=== PATIENT | female | born 1995 | race Caucasian/White ===

== ENCOUNTER 2022-05-19 17:00 | Inpatient (IN) | payer OTHER, MEDICAID, SELFPAY ==
[2022-05-19] VITALS (52 sets, daily range): BP systolic 109–175; BP diastolic 55–95; PULSE 79–103; RESP 18; TEMP 37.1; O2SAT 97–100; BMI 40.7
[2022-05-19 13:32] LABS: Nitrazine Paper, PH Negative
[2022-05-19 14:09] LABS: Actim Prom Positive
[2022-05-19 15:18] LABS: Basophils % 0.1 %; Eosinophils # 0.1 10^3/uL (0.0-0.8); Eosinophils % 0.7 %; Hemoglobin 13.3 g/dL (11.5-15.3); Lymphocytes # 2.4 10^3/uL (0.8-4.8); Lymphocytes % 15.6 %; Mean Corpuscular HGB Conc 34.1 g/dL (30.0-36.0); Mean Corpuscular Hemoglobin 31.4 pg (28.0-34.0); Monocytes # 0.8 10^3/uL (0.2-0.9); Monocytes % 5.1 %; Neutrophils # 11.99 10^3/uL (1.8-7.7); Neutrophils % 77.8 %; Nucleated Red Blood Cells % 0 %; Platelet Count 262 10^3/cmm (130-400); Red Blood Count 4.24 10^6/uL (4.1-5.3); Red Cell Distribution Width 14.2 % (12.1-15.1); White Blood Count 15.4 10^3/uL (4.0-10.0)
[2022-05-19] MEDS: dextrose 5%-lactated ringers 1,000 ML 125 ML IV (15:22)
[2022-05-19] MEDS: ampicillin 2,000 MG in sodium chloride 0.9% (plus) 50 ML 100 MG IV (15:23)
[2022-05-19] MEDS: miSOPROStol 100 mcg tablet 25 MCG SUBLINGUAL (17:31)
--- NOTE | 2022-05-19 18:20 | ANES.PREANE2 ---
Pre-Anesthetic Assessment Height/Weight: Height 1.75 m Weight 125.191 kg Temp Pulse Resp BP O2 Del Method 98.7 F 92 18 127/79 05/19/22 14:47 05/19/22 16:04 05/19/22 14:47 05/19/22 16:04 05/19/22 15:00 Preop Diagnosis: Active Labor Labor Epidural Familial anesthetic complications: none Last intake: clears- current meal- 1230 05/19/22 Social No alcohol and No tobacco Airway Submandibular: within normal limits Cervical ROM: within normal limits Mallampati: Class II Dentition: full Pulmonary None reported CV/HEM None reported None reported Hepatic None reported GI Gastroesophageal Reflux Disease Metabolic None reported Musc/skel None reported Neuropsych None reported Anesthetic Plan ASA status: 2 Anesthesia: Eval. for regional block (Epidural) Medications/Allergies Home Medications Medication Instructions Recorded Confirmed Last Taken Type fluoxetine 40 mg capsule 40 mg PO DAILY 05/18/21 05/19/22 05/18/22 17:00 History 05/19/22 05/18/22 17:00 History Allergies Allergy/AdvReac Type Severity Reaction Status Date / Time No Known Allergies Allergy Verified 05/18/21 10:38 Current Medications Generic Name Dose Route Start Last Admin Trade Name Freq PRN Reason Stop Dose Admin Dextrose/Lactated Ringer's 1,000 mls @ 125 mls/hr 05/19/22 15:00 05/19/22 15:22 Dextrose 5%-Lactated Ringers IV 125 mls/hr .Q8H JOSE Administration Misoprostol 25 mcg 05/19/22 17:22 05/19/22 17:31 Misoprostol 100 Mcg Tablet SUBLINGUAL 25 mcg ONCE PRN Administration LABOR INDUCTION PFS Anesthesia Social History (Updated 05/18/21 @ 10:39 by Jessie Haynes NP) Smoking and tobacco status: never smoked Female Reproductive History : 1 Data Anesthesia 05/19/22 15:00 Short CBC 05/19/22 Range/Units 15:00 WBC 15.4 H (4.0-10.0) 10^3/uL Hgb 13.3 (11.5-15.3) g/dL Hct 39.0 (37.0-47.0) % MCV 92.0 (81-99) fl Plt Count 262 (130-400) 10^3/cmm Neut % (Auto) 77.8 % Neut # (Auto) 11.99 H (1.8-7.7) 10^3/uL Cardiac Studies: No Data to Display
--- NOTE | 2022-05-19 18:41 | PC.NURSE ---
PT SEE JONH ODOM, HAS NOT SEEN HER IN ABOUT 2 MONTHS, DR. ZUNIGA IS TREATING HER WITH LEXAPRSloane AND IS AWARE OF HER ISSUES. THIS MAT MACHINE TENDER DID TALK WITH HER ABOUT POST DEPRESSION.
[2022-05-19] MEDS: ampicillin 1,000 MG in sodium chloride 0.9% (plus) 50 ML 100 MG IV ×2 (19:37→23:37)
[2022-05-19] MEDS: oxytocin 30 UNIT/500 ML BAG IV (20:50)
[2022-05-19] MEDS: lactated ringers 1,000 ML 999 ML IV ×2 (21:07→22:20)
--- NOTE | 2022-05-19 22:53 | ANES.PROC ---
Documented by User: Tricia Alonzo CRNA 05/19/22 22:57 Anesthesia Procedures Procedure/Date: 05/19/22 Epidural: Time Out Performed: Yes Consents Signed: Procedure Consent Consent: requested by attending/covering physician, from patient, risks and benefits reviewed and patient agrees to proceed Lumbar Level: L3-L4 Epidural position: sitting Epidural procedure: sterile prep of area, 1% lidocaine to numb the area, negative for paresthesia passed, test dose given, 1.5% xylocaine 1:200k epi, placed PCEA, no systemic response, sterile dressing applied, L.U.D. no apparent complications and 0.2% Ropiavacaine @ mls/hr (13) Additional Comments: third attempt successful CHRISTEN at 9cm catheter threaded with ease to 15 cm 100 mcg fentanyl, 10 ml of sterile saline and remaining lidocaine given. sterile dressing applied SAM. VSS. Documented by User: Bert Dee 05/20/22 08:18 Anesthesia Procedures Procedure/Date: 05/20/22
[2022-05-19] MEDS: fentaNYL 50 mcg/mL INJ 2mL IVP (23:30)
[2022-05-20] VITALS (85 sets, daily range): BP systolic 79–215; BP diastolic 38–103; PULSE 16–123; RESP 16–89; TEMP 36.8; O2SAT 98–100
--- NOTE | 2022-05-20 00:20 | P.ANES_ITS ---
Documented by User: Tricia Alonzo CRNA 05/20/22 01:07 Anesthesia Procedures Procedure/Date: 05/20/22 Epidural: Time Out Performed: Yes Consents Signed: Procedure Consent Lumbar Level: L3-L4 Epidural position: sitting Epidural procedure: sterile prep of area, 1% lidocaine to numb the area, negative for paresthesia passed, test dose given, 1.5% xylocaine 1:200k epi, placed PCEA, no systemic response, sterile dressing applied, L.U.D. no apparent complications and 0.2% Ropiavacaine @ mls/hr (13 ml ) Additional Comments: previous epidural removed by DRIVER STARTING GATE tip intact- patient did not receive adequate relief after multiple bolus attempts. Successful insertion on second attempt CHRISTEN at 9 cm catheter threaded to 18 cm. Remaining saline and lidocaine given. Documented by User: Bert Dee 05/20/22 08:18 Anesthesia Procedures Procedure/Date: 05/20/22
--- NOTE | 2022-05-20 02:33 | PC.NURSE ---
Zach Onofre CRNA called Dr. Dee to come in. Time is unknown of call. Dr. Dee was in room at 0126
[2022-05-20] MEDS: ampicillin 1,000 MG in sodium chloride 0.9% (plus) 50 ML 100 MG IV (03:10)
[2022-05-20] MEDS: dextrose 5%-lactated ringers 1,000 ML 125 ML IV (04:30)
--- NOTE | 2022-05-20 04:55 | PM.OPHPUD ---
Labor & Delivery H&P Update Date of Procedure: May 20, 2022 Date H&P Performed: 05/17/22 Changes to previous documentation: Spontaneous rupture membranes Admission Diagnosis: 27-year-old 1 female at 41 weeks and 3 days Preop diagnosis: Active Labor Planned procedure: Vaginal delivery Other information: The patient presented to the hospital for an NST that was being performed due to being over 41 weeks. She stated that she was concerned her water may have broke. Nitrazine was negative. But actin PROM was positive. As result, she was admitted, and she was placed on Cytotec sublingual. Her had been relatively unremarkable. Her labs were as follows her blood type was O+. Her antibody screen was negative. Her initial glucose screen was 183, but she passed her 3-hour glucose screen she was GBS positive. Rubella immune. The remainder of her infectious disease profile was within normal limits. Related Problem List Diagnoses (1) 41 weeks gestation of : (2) Group B streptococcal carriage complicating : A&P Assessment and plan (1) 41 weeks gestation of : Depending on her response to Cytotec, we will continue to either augment her labor or monitor her progress. Status: Acute (2) Group B streptococcal carriage complicating : Group B strep protocol. Status: Acute
--- NOTE | 2022-05-20 05:02 | PM.DELIVERY ---
Delivery Note: Date of delivery: May 20, 2022 Pre-delivery diagnoses: 1. 27-year-old 1 at 41 weeks and 3 days presenting with spontaneous rupture of membranes 2. GBS status positive Post-delivery diagnoses: Status post vacuum-assisted vaginal delivery Procedure: Vacuum-assisted vaginal delivery Delivering Physician: J Carlos Sevilla Estimated blood loss (mL): 300 Pre-Delivery Course: The patient presented to the hospital in with spontaneous rupture of membranes. She was not sure exactly when it occurred but she thinks it happened late in the morning on the day of her admission. After monitoring the patient for several hours, we elected to place her on Cytotec sublingual. An amniotomy was performed as well at that time. As the patient's labor progressed, she desired an epidural. Unfortunately, there was multiple attempts to get her epidural before she finally had a good epidural on the fourth attempt. She then progressed to complete. She is allowed to labor down for about an hour before pushing was initiated. Delivery: DELIVERY: As the nursing staff was pushing with the patient, she began having some late decelerations but continued to have decent variability. The heart tones then dropped into the 70s. At that point they contacted me they came to the room. At that time the baby's heart tones briefly increased to the 120s before dropping to the 70s again. I elected to to assisted delivery with a vacuum. A Kiwi vacuum was placed and was pumped up to the appropriate range as her contraction began. I then assisted the infant for 1 push. The baby then went from +2 station to completely , and I released the vacuum. There were no pop offs. She delivered a female with a weight of 9 pounds 11 ounces with Apgars of 3 7 and 9. The baby was delivered from the SHAREE position and placed on the mother's abdomen it was clear that the baby's tone was not adequate, the cord was then clamped and cut and the baby was brought to the warmer There was no nuchal cord. Meconium was noted. The placenta and 3 vessel cord were delivered intact shortly thereafter. The perineum and vaginal vault were carefully examined. A posterior midline second-degree tear was noted. The patient also had a left vaginal wall laceration just deep to the labia minora. Both lacerations were repaired with 3-0 Vicryl. Both the mother and the baby were in stable condition. Post-Delivery Status: Good Coding Level of Care Code Acute Scientific Advisor for Perlitag Alber
--- NOTE | 2022-05-20 08:18 | ANE.PACU2 ---
Inpatient post-anesthesia follow up: Airway intact: Yes Vital signs: Temperature 98.7 F Pulse Rate 111 Respiratory Rate 16 Blood Pressure 111/54 Pulse Oximetry 98 Oxygen Delivery Me thod Room Air Oxygen Flow Rate Fraction of Inspir ed Oxygen Hydration adequate: Yes Nausea and vomiting: No Pain level: 2 Mental status: Baseline
[2022-05-20 09:07] LABS: Basophils % 0.1 %; Hematocrit 31.5 % (37.0-47.0); Hemoglobin 10.5 g/dL (11.5-15.3); Lymphocytes # 1.8 10^3/uL (0.8-4.8); Lymphocytes % 7.9 %; Mean Corpuscular HGB Conc 33.3 g/dL (30.0-36.0); Mean Corpuscular Hemoglobin 31.7 pg (28.0-34.0); Mean Corpuscular Volume 95.2 fl (81-99); Mean Platelet Volume 10.8 fL (7.4-10.4); Monocytes % 4.3 %; Neutrophils # 19.35 10^3/uL (1.8-7.7); Neutrophils % 86.7 %; Nucleated Red Blood Cells % 0 %; Platelet Count 253 10^3/cmm (130-400); Red Blood Count 3.31 10^6/uL (4.1-5.3); Red Cell Distribution Width 14.3 % (12.1-15.1); White Blood Count 22.3 10^3/uL (4.0-10.0)
[2022-05-20] MEDS: prenatal vitamin Capsule 1 CAP PO (11:49)
[2022-05-20] MEDS: docusate sodium 100 mg Capsule PO ×2 (11:49→17:35)
[2022-05-20] MEDS: ibuprofen 800 mg tablet PO ×3 (11:49→21:15)
[2022-05-20 20:27] LABS: Hemoglobin 10.2 g/dL (11.5-15.3); Mean Corpuscular Hemoglobin 31.9 pg (28.0-34.0); Mean Corpuscular Volume 93.8 fl (81-99); Mean Platelet Volume 10.2 fL (7.4-10.4); Platelet Count 233 10^3/cmm (130-400); Red Cell Distribution Width 14.5 % (12.1-15.1); White Blood Count 16.5 10^3/uL (4.0-10.0)
[2022-05-20] MEDS: benzocaine-menthol 78 gm Canister 1 SPRAY TOPICAL (21:16)
[2022-05-20] MEDS: lanolin oint 7 gm 1 APPLIC TOPICAL (21:16)
[2022-05-21 05:09] VITALS: BP 117/75; PULSE 92; RESP 16
[2022-05-21] MEDS: prenatal vitamin Capsule 1 CAP PO (07:57)
[2022-05-21] MEDS: ibuprofen 800 mg tablet PO (07:57)
[2022-05-21] MEDS: docusate sodium 100 mg Capsule PO (07:58)
--- NOTE | 2022-05-21 09:34 | PM.OBGYDC ---
Discharge Providers DIE CASTING SUPERVISOR Date of Admission: 05/19/22 17:00 Date of Discharge: 05/22/22 Attending Provider at Admission: J Carlos Sevilla MD Attending Provider at Discharge: J Carlos Sevilla MD Primary Care Provider: DAWNA Olivera Diagnoses at Discharge Discharge Diagnosis (1) 41 weeks gestation of : Status: Resolved (2) Group B streptococcal carriage complicating : Status: Resolved Reason for Visit Reason for Visit: PROM Hospital Course Hospital Course The patient presented to the hospital with spontaneous rupture of membranes. She was placed on Cytotec sublingual. An epidural was placed after multiple attempts. She then progressed to complete and had a vacuum-assisted vaginal delivery due to decelerations. Her course was otherwise unremarkable. She breast-fed well. Her pain was well controlled. Her bleeding was within normal limits. Information Peripartum Data: Delivery Method: Vaginal Physical Exam Narrative: The patient is alert. She appears comfortable. Her heart has a regular rate and rhythm with no murmurs appreciated. Lungs are clear to auscultation bilaterally. Her fundus is firm and below the umbilicus. Urinary Catheter Management: Bernard: Cath Placed During This Visit: yes, but has since been removed by the nurse Reason for Continuing Indwelling Catheter: Required Immobilization for Trauma or Surgery or Anesthesia Urinary Catheter Date of Insertion: 05/20/22 Urinary Catheter Time of Insertion: 00:40 Date Urinary Catheter Removed: 05/20/22 Time Urinary Catheter Discontinued: 03:55 Discharge Data Studies Completed and Pending Laboratory Results WBC 16.5 10^3/uL (4.0-10.0) H 05/20/22 20:17 RBC 3.20 10^6/uL (4.1-5.3) L 05/20/22 20:17 Hgb 10.2 g/dL (11.5-15.3) L 05/20/22 20:17 Hct 30.0 % (37.0-47.0) L 05/20/22 20:17 MCV 93.8 fl (81-99) 05/20/22 20:17 MCH 31.9 pg (28.0-34.0) 05/20/22 20:17 MCHC 34.0 g/dL (30.0-36.0) 05/20/22 20:17 RDW 14.5 % (12.1-15.1) 05/20/22 20:17 Plt Count 233 10^3/cmm (130-400) 05/20/22 20:17 MPV 10.2 fL (7.4-10.4) 05/20/22 20:17 Neut % (Auto) 86.7 % 05/20/22 08:35 Lymph % (Auto) 7.9 % 05/20/22 08:35 [place] % (Auto) 4.3 % 05/20/22 08:35 Eos % (Auto) 0.0 % 05/20/22 08:35 Baso % (Auto) 0.1 % 05/20/22 08:35 Neut # (Auto) 19.35 10^3/uL (1.8-7.7) H 05/20/22 08:35 Lymph # (Auto) 1.8 10^3/uL (0.8-4.8) 05/20/22 08:35 [place] # (Auto) 1.0 10^3/uL (0.2-0.9) H 05/20/22 08:35 Eos # (Auto) 0.0 10^3/uL (0.0-0.8) 05/20/22 08:35 Baso # (Auto) 0.0 10^3/uL (0.0-0.1) 05/20/22 08:35 Nucleated RBC % (auto) 0 % 05/20/22 08:35 Nucleated RBCs # 0.0 /100WBC 05/20/22 08:35 Insulin-like GF I Positive 05/19/22 14:00 Vitals Last Vital Signs Temp 98.2 F 05/20/22 21:16 Pulse 92 05/21/22 05:09 Resp 16 05/21/22 05:09 BP 117/75 05/21/22 05:09 Pulse Ox 98 05/20/22 01:05 O2 Del Method 05/20/22 05:57 Discharge Plan Discharge Patient Disposition: Home Condition: Stable Prescriptions: New ibuprofen 800 mg Tablet 800 mg PO TID Qty: 45 0RF Continued fluoxetine 40 mg capsule 40 mg PO DAILY Discharge Orders: Discharge Order (Routine); Ordered 05/21/22 Ordered By: J Carlos Sevilla Referrals: J Carlos Sevilla MD [Physician] - 6 Weeks Discharge Diet: Usual diet Discharge Activity: Limit activity as instructed Patient Instructions: Depression (DC), Bleeding (DC), Preeclampsia and Eclampsia After Delivery (GEN), OB Discharge Report, OB Anesthesia Instructions, OB Food/Drug Interaction Guide, Opioid Safety, OB Home Care, OB Proud Parent Packet Discharge Attestations DIE CASTING SUPERVISOR Time Spent in Discharge Care*: less than 30 min Coding Level of Care Code Acute Wound Specialist for Chg Fwd Diagnoses 41 weeks gestation of O48.0; Z3A.41 Group B streptococcal carriage complicating O99.820
[2022-05-21 11:00] VITALS: BP 110/67; PULSE 84; RESP 16; TEMP 36.6
== END 2022-05-21 11:47 | disposition home or self-care (01) | DRG 807 ==
LOC: OPOB 05-20 01:59 → OBGYN 05-20 01:59
PROVIDERS: Admitting Provider Family Medicine; PCP Nurse Practitioner; Visit Provider Family Medicine
DX: O48.0 Post-term pregnancy (principal); Z37.0 Single live birth; Z3A.41 41 weeks gestation of pregnancy; O99.824 Streptococcus B carrier state complicating childbirth; O76 Abnormality in fetal heart rate and rhythm complicating labor and delivery; O77.0 Labor and delivery complicated by meconium in amniotic fluid; O70.1 Second degree perineal laceration during delivery
CPT/HCPCS: 12345; 36415; 51702; 59025; 59409; 83986; 84112; 85025; 85027; 96374; 96376; 99211; J0290; J2400; J2590; J2795; J3010; J3490; J7120; J7121

== ENCOUNTER 2023-05-22 21:03 | Emergency (ER) | payer OTHER, MEDICAID, SELFPAY ==
[2023-05-22 21:06] VITALS: BP 151/97; PULSE 101; RESP 18; TEMP 36.7; O2SAT 96; BMI 36.1
--- NOTE | 2023-05-22 21:18 | ED_ITS ---
HPI - Allergic Reaction General: Chief complaint: Allergic Reaction Stated complaint: allergic rxn Time Seen by Provider: 05/22/23 21:13 Source: patient Mode of arrival: ambulatory Limitations: no limitations History of Present Illness: HPI narrative: 28-year-old female states she had woke u p with a urticarial rash to her trunk this morning states she took an allergy pill improved throughout the day states feeling mildly rashes returned its on her extremities and her trunk states it is very pruritic in nature she denies any shortness of breath or feels like her throat is closing. States she has never had an allergic reaction to anything in the past has not had any changes that she knows of. Associated symptoms: Deny abdominal pain, nausea or vomiting Review of Systems Const: Denies: fever(s), chills, body aches or change in appetite ENMT: Denies: throat pain or dental pain Card: Denies: chest pain Resp: Denies: dyspnea GI: Denies: abdominal pain, nausea, vomiting or diarrhea Musc: Denies: neck pain or back pain Skin/Breast: Reports: rash and pruritus Neuro: Denies: headache(s) PFSH ED PFSH: Social History Smoking and tobacco/nicotine status: never used tobacco/nicotine Female Reproductive History: Date of last menstrual period: 05/22/23 Physical Exam Const: COMMON NORMALS: no acute distress, patient oriented x3 and healthy appearing HENMT: COMMON NORMALS: normocephalic and atraumatic HEAD & SCALP: normo cephalic and atraumatic THROAT: posterior oropharynx normal Eye: COMMON NORMALS: conjunctivae normal CONJUNCTIVA: Yes conjunctivae normal Neck/C-Spine: COMMON NORMALS: full ROM and supple Chest: OTHER: Urticarial rash to chest Resp: COMMON NORMALS: normal respiratory effort, No retractions, No use of accessory muscles and clear to auscultation bilaterally AUSCULTATION: clear to auscultation bilaterally Cardio: COMMON NORMALS: regular rate, regular rhythm and No murmurs present (Cardio) RATE: regular rate RHYTHM: regular rhythm Extremity: COMMON NORMALS: full ROM NARRATIVE EXTREMITY EXAM: Urticarial rash noted to extremities Neuro: COMMON NORMALS: patient oriented x3, moves all extremities and no focal motor deficits Psych: COMMON NORMALS: mental status grossly normal, Normal thought process present and cooperative THOUGHT PROCESS: Normal thought process present Skin: COMMON NORMALS: no wounds Course Vital Signs: Vital signs: Vital Signs Temperature 98.1 F 05/22/23 21:06 Pulse Rate 84 05/22/23 21:34 Respiratory Rate 18 05/22/23 21:34 Blood Pressure 121/86 05/22/23 21:34 Pulse Oximetry 96 05/22/23 21:34 Oxygen Delivery Me thod Room Air 05/22/23 21:34 MDM - Allergic Reaction Medical Decision Making Patient presents here with allergic reaction her rash is much improved here after IV meds we will place her on 5 days of steroid and prescribe her an EpiPen as well she is to follow-up with PCP and return if worsening she understands agrees to plan. Medical Records I reviewed the patient's medical records. No radiology studies performed this visit Discharge Plan Discharge Patient Disposition: Home Clinical Impression: Urticaria, Allergic reaction Condition: Stable Prescriptions: New prednisone 50 mg tablet 50 mg PO DAILY Qty: 5 0RF epinephrine [EpiPen 2-James] 0.3 mg/0.3 mL auto-injector 0.3 mg IM Q30M PRN (Reason: anaphylaxis) Qty: 2 0RF Rx Instructions: do not exceed 12 doses per 24 hrs No Action fluoxetine 40 mg capsule 40 mg PO DAILY ibuprofen 800 mg Tablet 800 mg PO TID Qty: 45 0RF Discharge Orders: Discharge ED (Routine); Ordered 05/22/23 Ordered By: Tamika Urbina Referrals: Darien Kevin, JEWEL BEARING MAKER-C [Nurse Practitioner] - 1-3 days Discharge Diet: Advance as tolerated Discharge Activity: Resume usual activity Patient Instructions: Urticaria (ED), General Allergic Reaction (ED) Coding Level of Care Code ED Senior Compliance Analyst for Tiffany Campo
[2023-05-22] MEDS: famotidine 20 mg/2 mL INJ 40 MG IVP (21:28)
[2023-05-22] MEDS: methylPREDNISolone sod succ 125 mg/2 mL INJ IVP (21:28)
[2023-05-22] MEDS: diphenhydrAMINE 50 mg/mL SDV 1mL IVP (21:28)
[2023-05-22 21:34] VITALS: BP 121/86; PULSE 84; RESP 18; O2SAT 96
[2023-05-22 22:01] VITALS: BP 121/86; PULSE 82; RESP 14; O2SAT 95
== END 2023-05-22 22:11 | disposition home or self-care (01) ==
PROVIDERS: Emergency Provider Emergency Medicine; PCP Family Medicine
DX: L50.0 Allergic urticaria (principal)
CPT/HCPCS: 96374; 96375; 99284; J1200; J2930; J3490

== ENCOUNTER 2023-09-01 10:12 | Outpatient (CLI) | payer OTHER, MEDICAID, SELFPAY ==
--- NOTE | 2023-09-01 10:20 | XR_ITS ---
WS: [id number] Chest 2 views, 09/01/2023 Clinical Data: HEMOPTYSIS Comparison: None. Findings: No nodules, masses or effusions are seen. The heart is normal. The pulmonary vascularity is not increased. No pneumonia or pneumothorax is seen. Impression: Negative chest.
== END 2023-09-01 10:13 | disposition home or self-care (01) ==
LOC: RAD 10:14
PROVIDERS: PCP Family Medicine; Visit Provider Nurse Practitioner Family
DX: R04.2 Hemoptysis (principal)
CPT/HCPCS: 71046